=== PATIENT | female | born 1975 | race Asian ===

== ENCOUNTER 2019-01-07 20:23 | Emergency (ER) | payer OTHER ==
[~2019-01-07] VITALS: Ht 160 cm; Wt 63.6 kg
[2019-01-07] MEDS ORDERED: LOSA25TA14 PO (20:40)
[2019-01-07] MEDS ORDERED: GABA-1171 PO (20:40)
[2019-01-07] MEDS ORDERED: AMLO5TAB6 PO (20:40)
[2019-01-07] MEDS ORDERED: FISH1000 PO (20:40)
[2019-01-07] MEDS ORDERED: ASPIRIN 325 MG TAB PO ONE (20:45)
[2019-01-07] MEDS ORDERED: GI COCKTAIL 50ML BTL(HYOSCYAMINE/MAALOX/LIDOCAINE VISCOUS)(1:3:1) PO ONE (20:45)
[2019-01-07 20:58] LABS: BASO # 0.1 10^3/uL (0.0-0.2); EOS # 0.1 10^3/uL (0.0-0.50); EOS % 0.8 % (0.0-3.0); HEMATOCRIT 39.4 % (36.0-47.0); HEMOGLOBIN 13.4 g/dl (12.0-15.5); MEAN CORPUSCULAR HEMOGLOBIN 33.3 pg (27.0-33.0); MEAN CORPUSCULAR VOLUME 97.8 fl (80.0-96.0); MONO # 0.8 10^3/uL (0.0-0.8); MONO % 9.5 % (0.0-5.0); NEUTROPHILS # 4.4 10^3/uL (1.8-7.7); NEUTROPHILS % 52.5 % (36.0-66.0); PLATELET COUNT, AUTOMATED 305 10^3/uL (150-450); RED BLOOD COUNT 4.03 10^6/uL (4.00-5.40); WHITE BLOOD COUNT 8.3 10^3/uL (4.0-10.0)
[2019-01-07 21:07] LABS: INR 0.92; PROTHROMBIN TIME 12.5 SECONDS (12.1-14.4)
[2019-01-07 21:19] LABS: ALBUMIN 3.9 GM/DL (3.2-5.2); ALT/SGPT 51 U/L (12-78); BILIRUBIN,DIRECT 0.1 MG/DL (0.0-0.2); BILIRUBIN,TOTAL 0.5 MG/DL (0.2-1.0); BLOOD UREA NITROGEN 15 MG/DL (7-18); CALCIUM LEVEL 8.8 MG/DL (8.5-10.1); CARBON DIOXIDE LEVEL 25 MEQ/L (21-32); CHLORIDE LEVEL 106 MEQ/L (98-107); CK-MB VALUE MASS < 1.0 NG/ML (<3.6); CPK CREATINE PHOSPHOKINASE 73 U/L (26-192); CREATININE FOR GFR 0.61 MG/DL (0.55-1.30); GLOMERULAR FILTRATION RATE > 60.0 (>58); GLUCOSE, FASTING 119 MG/DL (70-100); LIPASE 294 U/L (73-393); MB/CK RELATIVE INDEX 1.37 (< OR =4); POTASSIUM SERUM 3.4 MEQ/L (3.5-5.1); SODIUM LEVEL 141 MEQ/L (136-145); TOTAL PROTEIN 7.3 GM/DL (6.4-8.2); TROPONIN I < 0.02 NG/ML (< 0.10)
--- NOTE | 2019-01-07 21:32 | ECGEPIP ---
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
--- NOTE | 2019-01-07 21:40 | REP ---
Clinical: Chest pain . Comparison: None . Findings: The mediastinum and cardiac silhouette are stable and within normal limits for portable technique. The lung dowd are clear without acute consolidation, effusion, or pneumothorax. Skeletal structures are intact. Impression: No acute cardiopulmonary process appreciated. Electronically Signed by Veto Gilliam MD 01/07/2019 09:32 P
[2019-01-07] MEDS ORDERED: NITROGLYCERIN 0.4 MG SUBL TABLET SL PRN ×2 (21:45→21:46)
[2019-01-07 23:30] VITALS: BP 129/84
[2019-01-07 23:30] LABS: CK-MB VALUE MASS < 1.0 NG/ML (<3.6); CPK CREATINE PHOSPHOKINASE 56 U/L (26-192); MB/CK RELATIVE INDEX 1.79 (< OR =4); TROPONIN I < 0.02 NG/ML (< 0.10)
--- NOTE | 2019-01-08 07:39 | ECGEPIP ---
Stationary ECG Study [facility] - ED Test Date: 2019-01-07 Pat Name: KAUSHIK BAY Department: Room: - Gender: F [employer]er: : 1975 Requested By: EDGARDO BTAEMAN Order Number: [id number] Reading MD: Breana Carlton Measurements Intervals [place] Rate: 74 P: 55 [place]: 176 QRS: 15 QRSD: 78 T: 39 QT: 402 QTc: 448 Interpretive Statements SINUS RHYTHM POSSIBLE RIGHT VENTRICULAR CONDUCTION DELAY DECREASED RATE 01/07/19 Electronically Signed On 01-08-2019 7:38:36 EDT by Breana Carlton
== END 2019-01-07 23:50 | disposition home or self-care (01) ==
LOC: M ED 20:23
DX: R07.89 Other chest pain (principal); R00.0 Tachycardia, unspecified; E78.5 Hyperlipidemia, unspecified; Z72.0 Tobacco use; Z82.49 Family history of ischemic heart disease and other diseases of the circulatory system; Z79.899 Other long term (current) drug therapy; Z88.0 Allergy status to penicillin

== ENCOUNTER → 2019-12-15 | Outpatient (CLI) | payer OTHER ==
[~2019-12-15] MED LIST: AMLO5TAB6 PO; FISH1000 PO; GABA-1171 PO; LOSA25TA14 PO
--- NOTE | 2019-12-15 19:46 | REP ---
Right great toe: Four views. History: Injury. Findings: Four views of the right great toe demonstrate no evidence of fracture or subluxation. There is some soft tissue swelling at the MTP joint. Impression: No fracture seen. Electronically Signed by Jose Miguel Gonzalez MD 12/15/2019 07:38 P
== END ==
LOC: M LRY 19:15
PROVIDERS: ATTEND Physician Assistant
DX: S99.921A Unspecified injury of right foot, initial encounter (principal); M79.89 Other specified soft tissue disorders; X58.XXXA Exposure to other specified factors, initial encounter; Y92.9 Unspecified place or not applicable
CPT/HCPCS: 73660; G0463

== ENCOUNTER 2021-05-14 13:24 | Emergency (ER) | payer OTHER ==
[~2021-05-14] VITALS: Ht 160 cm; Wt 68.0 kg
[~2021-05-14 13:24] MED LIST changes: +AMLO1TAB24 PO; -AMLO5TAB6 PO
[2021-05-14] MEDS ORDERED: FOLI1TAB11 PO (13:37)
[2021-05-14] MEDS ORDERED: NAPR-855 PO (13:37)
[2021-05-14] MEDS ORDERED: DICL1GEL3 TOP (13:37)
[2021-05-14] MEDS ORDERED: NORCO, ANEXSIA 5/325MG TABLET (HYDROcodone/ACETAMINOPHEN) PO ONE (20:00)
[2021-05-14] MEDS ORDERED: methocarbamoL 750 MG TAB PO ONE (20:00)
--- NOTE | 2021-05-14 21:10 | REPVR ---
PROCEDURE INFORMATION: Exam: CT Cervical Spine Without Contrast Exam date and time: 05/14/2021 8:16 PM Age: 45 years old Clinical indication: Neck pain; Additional info: Neck pain with numbness right hand TECHNIQUE: Imaging protocol: Computed tomography images of the cervical spine without contrast. Radiation optimization: All CT scans at this facility use at least one of these dose optimization techniques: automated exposure control; mA and/or kV adjustment per patient size (includes targeted exams where dose is matched to clinical indication); or iterative reconstruction. COMPARISON: CR PORTABLE CHEST X-RAY 01/07/2019 8:45 PM FINDINGS: Bones/joints: No acute fracture. Normal alignment. Discs/Spinal canal/Neural foramina: Slight interspace narrowing at C5-C6 with minimal posterior osteophytes and degenerative hypertrophic changes of uncovertebral joints, left greater than right. There is borderline left neural foraminal stenosis. There are early degenerative changes of the uncovertebral joints at C4-C5 with no spinal or foraminal stenosis. Lungs: Lung apices are normal. Soft tissues: Unremarkable. IMPRESSION: 1. Degenerative changes at C5-C6 and to a lesser degree C4-C5 with no significant spinal or foraminal stenosis throughout. 2. Otherwise negative CT cervical spine. No acute fracture or subluxation. Electronically signed by: Brandon Grey On 05/14/2021 21:09:35 PM
[2021-05-14] MEDS ORDERED: CYCL5TAB PO (21:31)
[2021-05-14] MEDS ORDERED: TRAM50TA2 PO (21:31)
[2021-05-14 21:51] VITALS: BP 140/95
== END 2021-05-14 21:49 | disposition home or self-care (01) ==
LOC: M ED 13:24
DX: M54.12 Radiculopathy, cervical region (principal); M54.2 Cervicalgia; I10 Essential (primary) hypertension; Z85.41 Personal history of malignant neoplasm of cervix uteri; F17.200 Nicotine dependence, unspecified, uncomplicated; Z79.899 Other long term (current) drug therapy; Z88.0 Allergy status to penicillin

== ENCOUNTER → 2021-08-06 | Outpatient (CLI) | payer OTHER ==
[~2021-08-06] MED LIST changes: +CYCL5TAB PO; +DICL1GEL3 TOP; +FOLI1TAB11 PO; +NAPR-855 PO; +TRAM50TA2 PO
--- NOTE | 2021-08-06 16:45 | REP ---
INDICATION: SCREENING MAMMOGRAM. COMPARISON: None priors are not available. They are either lost are destroyed. TECHNIQUE: Digital screening mammography was carried out bilaterally in CC and MLO projections using both 2D and 3D modalities. By history, the patient has no complaints of a palpable breast mass or other significant breast complaints. FINDINGS: The breasts are symmetric in size and shape. Markedly dense heterogenous somewhat nodular fibroglandular elements are seen bilaterally to such is significant degree that the sensitivity of the mammogram in detecting cancer is decreased. In the right breast seen only on the CC view there are 2 potential nodular densities 1 is in the outer aspect in the other is in the retroareolar central aspect. Confirmation of these potential densities cannot be made on the corresponding MLO view. No other suspicious features are seen in either breast. There is no internal architectural distortion. There are no suspicious calcifications. There is no skin thickening or nipple retraction. The Volpara volumetric breast density pattern is C. IMPRESSION: BIRADS/ACR category 1 0 mammogram. Two potential densities seen in the right breast as described above an although likely representing superimposed dense breast parenchyma since there are no priors comparison I would recommend diagnostic digital DBT spot compression views over each area in the CC projection along with a true lateral view of the right breast with potential additional mammographic imaging as necessary. Ultrasonography might also be indicated. This patient's Tyrer-Cuzick lifetime breast cancer risk assessment score is 6.8%. Due to the patient's breast density bilateral whole breast screening ultrasonography is warranted. This mammogram was interpreted with the aid of an FDA-approved computer-aided detection system. The patient states she had a clinical breast exam in over a year. The patient letter being requested is M0. RECOMMENDATION: As above <Electronically signed by Buddy Mark > 08/06/21 [id number]
== END ==
LOC: M WHC 15:36
PROVIDERS: ATTEND Registered Nurse Maternal Newborn
DX: Z12.31 Encounter for screening mammogram for malignant neoplasm of breast (principal); R92.8 Other abnormal and inconclusive findings on diagnostic imaging of breast

== ENCOUNTER → 2021-09-11 | Outpatient (CLI) | payer OTHER ==
--- NOTE | 2021-09-12 09:07 | REP ---
INDICATION: RIGHT BREAST ADD VIEWS. COMPARISON: Screening mammogram, 08/06/2021. TECHNIQUE: Focal compression spot images of the right breast were obtained in the CC and MLO orientations. Targeted right breast ultrasound was performed. FINDINGS: The asymmetries seen in the right breast, only on the CC view, could not be verified on additional view mammography. Right breast ultrasound: 9 o'clock, 3 cm from the nipple, 3 x 3 x 2 mm, simple cyst. Shear wave elastography, low KPA. IMPRESSION: BIRADS/ACR : Category 2: Benign finding. The patient letter being requested is M2. RECOMMENDATION: Repeat screening mammography recommended 1 year (for women over 40). <Electronically signed by Robbie Jones > 09/12/21 0922
== END ==
LOC: M WHC 14:38
PROVIDERS: ATTEND Registered Nurse Maternal Newborn
DX: Z12.31 Encounter for screening mammogram for malignant neoplasm of breast (principal)
CPT/HCPCS: 76642; 77065; G0279